=== PATIENT | male | born 1985 | race Caucasian/White ===

== ENCOUNTER 2021-05-02 06:56 | Emergency (ER) | payer OTHER, SELFPAY ==
[2021-05-02 07:10] VITALS: BP 141/78; PULSE 78; RESP 16; TEMP 36.6; O2SAT 98; BMI 25.8
--- NOTE | 2021-05-02 07:15 | ED_ITS ---
HPI - URI/Sore Throat General Chief Complaint: Upper Respiratory Symptoms Stated Complaint: Throat irritation, can't clear for days Time Seen by Provider: 05/02/21 07:08 History of Present Illness HPI Narrative: Patient here for dry cough and throat irritation for the past 4 -5 days. Had chills. No dyspnea. No vomiting no diarrhea. Not COVID vaccinated. No known sick contacts. Patient does smoke marijuana. No history of acid reflux. At times seems worse in the morning and improves the day but can happen any time. He does sleep with a fan at night. Otherwise, no new lifestyle changes. Related Data Previous Rx's Medication Instructions Recorded cephalexin 500 mg capsule (Keflex) 500 mg PO Q6H 7 Days #0 cap 01/10/17 Allergies Allergy/AdvReac Type Severity Reaction Status Date / Time No Known Allergies Allergy Uncoded 09/12/17 12:43 Review of Systems Review of Systems Narrative: GENERAL: Positive for chills, fatigue, malaise, negative fever, sweats. HEENT: Denies sinus pain, ear pain, positive for sore throat RESPIRATORY: Denies dyspnea, positive cough CARDIOVASCULAR: Denies chest pain, palpitations GASTROINTESTINAL: Denies nausea, vomiting, abdominal pain : Denies dysuria, frequency, hematuria MUSCULOSKELETAL: denies muscle or bony pain SKIN: Denies rash, skin lesions NEUROLOGIC: Denies weakness, numbness ROS Unobtainable: All systems reviewed & are unremarkable except as noted in HPI and below Patient History Social History Smoking Status: Never smoker Exam Narrative Exam Narrative: GENERAL: in no distress, not toxic not dyspneic HEAD: Normocephalic. EYES: Pupils equal round No scleral icterus. ENT: Mucous membranes moist. Clear bilateral posterior pharynx. No erythema edema exudates. No tongue elevation or drooling. No malocclusion or trismus. NECK: Trachea midline. No submandibular tenderness or mass CARDIOVASCULAR: Regular rate and rhythm without murmurs RESPIRATORY: Clear to auscultation. Breath sounds equal bilaterally. No wheezes, rales, or rhonchi. GASTROINTESTINAL: Abdomen soft, non-tender NEURO: AOx4. SKIN: Warm and dry PSYCH: Not anxious, is cooperative Initial Vital Signs Initial Vital Signs: Vital Signs Temperature 97.8 F 05/02/21 07:10 Pulse Rate 78 05/02/21 07:10 Respiratory Rate 16 05/02/21 07:10 Blood Pressure 141/78 H 05/02/21 07:10 Pulse Oximetry 98 05/02/21 07:10 Course Course Course Narrative: No new issues during course of stay. Orders Ordered: ED Orders 05/02/21 07:10 COVID19 -Nasal swab/Pre-Proc Stat Reevaluation(s) Reevaluation #1: Updated patient results of the swabs. At this time could be viral but is supportive care. No fever here. No prescriptions required. He can try [id number] antacids as a may be acid reflux causing irritation to the throat in the morning. For could be dry air from his fan that he uses at nigh ttime. Otolaryngology referral given to him. He agrees with treatment plan and follow-up. He will try reducing his marijuana use. Time: 07:45 Vital Signs Vital signs: Vital Signs - 8 hr 05/02/21 07:10 Temperature 97.8 F Pulse Rate 78 Respiratory Rate 16 Blood Pressure 141/78 H Pulse Oximetry 98 MDM - URI/Sore Throat Differential Diagnosis Differential diagnosis: Likely upper respiratory infection, viral infection, pharyngitis and other (Acid reflux/dry air irritation) Lab Data Labs: Lab Results 05/02/21 Range/Units 07:07 SARS-CoV-2 (PCR) Negative (Negative) Point of Care Testing Rapid Strep A Negative MDM Narrative Medical decision making narrative: Appropriate for discharge home. Laboratory studies and exam and vital signs are reassuring. Patient not toxic. Return precautions reviewed with patient. Possible pharyngitis from the fan that he uses at nighttime causing dry air. Also could be from acid reflux, new onset. [id number] medication suggestions given to patient. Referral for otolaryngology given as well. Patient agrees with treatment plan and discharged home. Work note for clearance for COVID given as requested. Discharge Plan Departure Patient Disposition: Home Clinical Impression: Pharyngitis Instructions: Sore Throat Activity Restrictions/Additional Instructions: Please try to reduce your marijuana use. You may try taking [id number] antacids at nighttime to see if acid reflux may be irritating your throat. Also try using humidifier at night to keep moist air that may prevent drying out of your throat. Call provided ear nose and throat office today for office re- evaluation within a week. Return if worsening questions or concerns. You had tested negative for COVID. Youmay return back to work. Prescriptions: No Action cephalexin [Keflex] 500 MG capsule 500 mg PO Q6H 7 Days Qty: 0 0RF Referrals: Reynaldo Poole MD [Physician] -
[2021-05-02 07:33] LABS: COVID19 -Nasal RAPID Negative (Negative)
== END 2021-05-02 08:27 | disposition home or self-care (01) ==
PROVIDERS: Emergency Provider Emergency Medicine
DX: J02.9 Acute pharyngitis, unspecified (principal); Z20.822 Contact with and (suspected) exposure to COVID-19
CPT/HCPCS: 87635; 87880; 99281; C9803